=== PATIENT | female | born 1995 | race Caucasian/White ===

== ENCOUNTER 2017-12-09 17:57 | Emergency (ER) | payer MEDICAID ==
[~2017-12-09] VITALS: Ht 170.2 cm; Wt 61.7 kg
[2017-12-09 18:10] VITALS: BP 113/75
--- NOTE | 2017-12-09 18:43 | NUR ---
PT C/O DRY COUGH FRO 3 WEEKS, STATES SHE WAS SEEN AT HER PCP AND GIVEN COUGH MEDICINE WITH NO REFLIEF. DENIES SPUTUM, SOB, OR FEVER. O2 SATS 98% ON RA. PENDING MD [place].
[2017-12-09 18:55] VITALS: BP 115/78
--- NOTE | 2017-12-09 18:56 | NUR ---
Patient discharged with v/s stable. Written and verbal after care instructions given and explained. Patient alert, oriented and verbalized understanding of instructions. Ambulatory with steady gait. All questions addressed prior to discharge. ID band removed. Patient advised to follow up with PMD. Rx of PREDNISONE, PROAIR HFA given. Patient educated on indication of medication including possible reaction and side effects. Opportunity to ask questions provided and answered.
== END 2017-12-09 18:56 | disposition home or self-care (01) ==
LOC: MED 17:57
DX: J45.909 Unspecified asthma, uncomplicated (principal)
CPT/HCPCS: 81025; 99283

== ENCOUNTER 2018-12-25 22:13 | Inpatient (IN) | payer MEDICAID ==
[~2018-12-25] VITALS: Ht 170.2 cm; Wt 68.0 kg
[2018-12-25] MEDS ORDERED: TERBUTALINE 1 MG/ML VIAL SUBQ SCH (23:00)
[2018-12-25] MEDS ORDERED: BETAMETH ACET/BETAMETH NA PH 30 MG/5 ML VIAL IM ONE ×2 (23:00→23:19)
[2018-12-25] MEDS ORDERED: TERBUTALINE 1 MG/ML VIAL SUBQ ONE (23:19)
[2018-12-25 23:55] LABS: APPEARANCE,URINE HAZY (CLEAR); BILIRUBIN,URINE NEGATIVE (NEGATIVE); BLOOD, URINE NEGATIVE (NEGATIVE); COLOR,URINE YELLOW (YELLOW); LEUKOCYTE ESTERASE ,URINE NEGATIVE (NEGATIVE); NITRITE, URINE NEGATIVE (NEGATIVE); PH,URINE 7.5 (5.0-9.0); UGLUCOSE NEGATIVE (NEGATIVE)
[2018-12-26 00:11] LABS: RBC,URINE 0-5 /HPF (0-5); WBC,URINE 0-5 /HPF (0-5)
[2018-12-26 03:31] VITALS: BP 114/63
[2018-12-26] MEDS ORDERED: LACTATED RINGERS 1,000 ML IV SCH (07:55)
[2018-12-26] MEDS ORDERED: GENTAMICIN PER PHARMACY MC PRN ×2 (09:05)
[2018-12-26] MEDS ORDERED: AMPICILLIN 2,000 MG in NACL 0.9% 100 ML IV SCH (09:17)
[2018-12-26] MEDS ORDERED: GENTAMICIN 120 MG in DEXTROSE 5% 100 ML IV SCH (09:30)
[2018-12-26] MEDS ORDERED: AMPICILLIN 2,000 MG VIAL ONE (09:40)
[2018-12-26] MEDS ORDERED: BETAMETH ACET/BETAMETH NA PH 30 MG/5 ML VIAL IM ONE (11:41)
[2018-12-26] MEDS: AMPICILLIN 1,000 MG in NACL 0.9% 50 ML IV SCH ×2 (17:10→22:45)
[2018-12-26] MEDS ORDERED: AMPICILLIN 1,000 MG VIAL ONE ×2 (17:12→22:50)
[2018-12-26] MEDS: GENTAMICIN 100 MG in DEXTROSE 5% 100 ML IV SCH (18:15)
[2018-12-27] MEDS: GENTAMICIN 100 MG in DEXTROSE 5% 100 ML IV SCH ×2 (02:09→09:59)
[2018-12-27] MEDS: AMPICILLIN 1,000 MG in NACL 0.9% 50 ML IV SCH ×2 (05:00→10:53)
[2018-12-27] MEDS ORDERED: AMPICILLIN 1,000 MG VIAL ONE ×2 (05:08→10:24)
[2018-12-27 08:40] LABS: ANION GAP 16.8 (8-16); CARBON DIOXIDE 21.6 mmol/L (21-32); CREATININE 0.5 mg/dL (0.6-1.3); POTASSIUM 3.4 mmol/L (3.5-5.1)
--- NOTE | 2018-12-27 12:27 | NUR ---
PATIENT HAS BEEN SCREENED AND CATEGORIZED LOW NUTRITION RISK. PATIENT WILL BE SEEN WITHIN 7 DAYS OF ADMISSION. 01/02/19 KAE ALLEN MBA, RD
== END 2018-12-27 15:30 | disposition home or self-care (01) | DRG 566 ==
LOC: MED 22:13 → MLD 22:25 → MFCC 12-26 17:09 → OBSVTOIN 12-26 19:57
PROVIDERS: ADMIT Obstetrics & Gynecology; ATTEND Obstetrics & Gynecology
DX: O23.43 Unspecified infection of urinary tract in pregnancy, third trimester (principal); Z3A.33 33 weeks gestation of pregnancy
CPT/HCPCS: G0378 ×22; 36415; 51702; 80048; 81001; 87086; J0290; J0702; J1580; J3105; J7060; J7120